=== PATIENT | female | born 1995 | race American Indian/Alaskan Native ===

== ENCOUNTER 2020-07-22 07:46 | Emergency (ER) | payer MEDICAID ==
[2020-07-22] MEDS ORDERED: cefTRIAXone 500 MG in Lidocaine 1% 1 ML IM ONE (08:25)
[2020-07-22] MEDS ORDERED: Azithromycin 250 MG Tab PO ONE (08:28)
[2020-07-22] MEDS ORDERED: Phenazopyridine 200 MG Tab PO ONE (08:29)
[2020-07-22] MEDS ORDERED: cefTRIAXone 250 MG in Lidocaine 1% 1 ML IM ONE (08:31)
--- NOTE | 2020-07-22 09:36 | EDM.PDOC ---
ED [facility] GENERAL MEDICAL PROBLEM - General Chief Complaint: General Stated Complaint: LOWER ABD PAIN Time Seen by Provider: 07/22/20 07:48 - History of Present Illness INITIAL COMMENTS - FREE TEXT/NARRATIVE: HISTORY AND PHYSICAL: History of present illness: This 24-year-old female without significant past medical history presents emergency department with urinary frequency, burning, hesitancy and change in color of her urine to be pink. She states that she has been living with her boyfriend but recently has had relationship difficulties secondary to infidelity and is also concerned that she may been exposed to a sexually transmitted disease. There is no positive test from anyone but she is concerned overall about this. She denies any nausea or vomiting or fever. No back pain. Does have some suprapubic irritation but not persistent pain. She denies any other associated signs or symptoms. States that she has not had a period for the last 8 weeks which is unusual for her and is concerned she might be . No other modifying, aggravating or alleviating factors. Of note she has been 3 times previously and has 3 live births. No abortions or miscarriages. Review of systems: A 10-point review of systems, other than pertinent positives and negatives as stated per HPI, is otherwise negative. Past medical history: As per history of present illness and as reviewed below otherwise noncontribut ory. Surgical history: As per history of present illness and as reviewed below otherwise noncontributory. Social history: No reported history of drug or alcohol abuse. Family history: As per history of present illness and as reviewed below otherwise noncontributory. Physical exam: VITAL SIGNS: Reviewed. GENERAL: Appears uncomfortable and needs to run back and forth to the bathroom. HEAD: No signs of head trauma. EYES: Pupils are equal. Extraocular motions intact. EARS: Hearing grossly intact. MOUTH: Oropharynx is normal. NECK: No adenopathy, no JVD. CHEST: Chest with clear breath sounds bilaterally. No wheezes, rales, or rhonchi. CARDIAC: Regular rate and rhythm. Normal S1 and S2, without murmurs, gallops, or rubs. VASCULAR: Peripheral pulses normal and equal in all extremities. ABDOMEN: Soft, minimal suprapubic tenderness which makes her feel that she needs to urinate. No distention rebound or guarding. No masses palpated. No CVA tenderness. MUSCULOSKELETAL: Good range of motion of all major joints. Extremities without clubbing, cyanosis or edema. NEUROLOGIC EXAM: Alert and oriented x 3. No focal sensory or motor deficits. Speech normal. Follows commands. PSYCHIATRIC: Mood normal. SKIN: No rash or lesions. Initial Differential Diagnosis & Plan: Differential diagnosis includes urinary tract infection, urethritis, candidiasis, gonorrhea, chlamydia, pyelonephritis. I will give empiric treatment for gonorrhea chlamydia with ceftriaxone, azithromycin, and send a self obtained wet mount sample. Urine GC chlamydia will be sent. Pyridium for symptoms. Definitive disposition and diagnosis as appropriate pending reevaluation and review of above. lower abdomen Pain Score (Numeric/FACES): 10 - Related Data Allergies Allergy/AdvReac Type Severity Reaction Status Date / Time No Known Allergies Allergy Verified 07/22/20 08:19 Home Meds: Home Meds Fluconazole [Diflucan] 150 mg PO ONETIME 1 Days #1 tab 07/22/20 [Rx] Lactobacillus 3/Fos/Pantethine [Probiotic & Acidophilus] 1 each PO BID 30 Days #60 capsule 07/22/20 [Rx] Phenazopyridine [Pyridium] 200 mg PO TID 3 Days #9 tab 07/22/20 [Rx] cephALEXin [Keflex] 1,000 mg PO TID 7 Days #42 capsule 07/22/20 [Rx] Past Medical History - Past Health History Medical/Surgical History: Denies Medical/Surgical History [employer] History: Reports: Social & Family History - Family History Family Medical History: Noncontributory - Recreational Drug Use Recreational Drug Use Frequency: Socially ED ROS GENERAL - Review of Systems Review Of Systems: See Below (noted) ED EXAM, GENERAL - Physical Exam Exam: See Below (noted) ED GENERAL MEDICAL PROCEDURES - Additional/Other Procedure(s) Other (Free Text) Procedure(s): PROCEDURE NOTE: Limited OB / Pelvic Ultrasound (transabdominal) Indication: Confirm evaluate for IUP All images obtained and evaluated by me. Images archived and saved. Findings: 1. Uterus Identified 2. No significant Free Fluid Noted 3. Normal-appearing uterus. No IUP identified Interpretation: No ultrasound evidence of an IUP. Signed by El Angeles M.D. Course - Vital Signs Last Recorded V/S: Last Vital Signs Temp 96.6 F L 07/22/20 08:16 Pulse 61 07/22/20 09:12 Resp 16 07/22/20 09:12 BP 123/73 07/22/20 09:12 Pulse Ox 99 07/22/20 09:12 - Orders/Labs/Meds Orders: Active Orders 24 hr Category Date Time Status CHLAMYDIA AND GONORRHEA BY TMA Stat Lab 07/22/20 08:45 Received CULTURE URINE [RM] Stat Lab 07/22/20 08:20 Received TRICH/KIKO/CAND BY DNA PROBE [MOLEC] Stat Lab 07/22/20 08:48 Received Labs: Laboratory Tests 07/22/20 07/22/20 Range/Units 08: 08:20 Urine Color YELLOW Urine Appearance SLT CLOUDY Urine pH 7.0 (5.0-8.0) Ur Specific [place] <= 1.005 (1.001-1.035) Urine Protein TRACE H (NEGATIVE) mg/dL Urine Glucose (UA) NEGATIVE (NEGATIVE) mg/dL Urine Ketones NEGATIVE (NEGATIVE) mg/dL Urine Occult Blood LARGE H (NEGATIVE) Urine Nitrite NEGATIVE (NEGATIVE) Urine Bilirubin NEGATIVE (NEGATIVE) Urine Urobilinogen 0.2 (<2.0) EU/dL Ur Leukocyte Esterase LARGE H (NEGATIVE) Urine RBC 3-6 (0-2/HPF) Urine WBC 40-50 (0-5/HPF) Ur Epithelial Cells FEW (NONE-FEW) Urine Bacteria 1+ H (NEGATIVE) Urine HCG, Qual NEGATIVE (NEGATIVE) Meds: Medications Discontinued Medications Generic Name Dose Route Start Last Admin Trade Name Freq PRN Reason Stop Dose Admin Azithromycin 1,000 mg 07/22/20 08:28 07/22/20 08:45 Zithromax PO 07/22/20 08:29 1,000 mg ONETIME ONE Administration Ceftriaxone Sodium 250 mg/ 1 mls @ 1 mls/sec 07/22/20 08:31 07/22/20 08:45 Lidocaine HCl IM 07/22/20 08:32 1 mls/sec ONETIME ONE Administration Phenazopyridine HCl 200 mg 07/22/20 08:29 07/22/20 08:44 Pyridium PO 07/22/20 08:30 200 mg ONETIME ONE Administration - Re-Assessments/Exams Free Text/Narrative Re-Assessment/Exam: 07/22/20 09:38 Patient does not have evidence of a . She does have evidence of cystitis given her symptoms and UA. We will treat with oral antibiotics. No symptoms of pyelonephritis. My diagnostic impression: 1. Cystitis 2. Hematuria 3. Empiric treatment for sexually transmitted infection Departure - Departure Time of Disposition: 09:39 Disposition: Home, Self-Care 01 Clinical Impression: Acute cyclitis, Hematuria, Risk for sexually transmitted disease - Discharge Information *PRESCRIPTION DRUG MONITORING PROGRAM REVIEWED*: Not Applicable *COPY OF PRESCRIPTION DRUG MONITORING REPORT IN PATIENT SETH: Not Applicable Instructions: Hematuria, Adult, Hemorrhagic Cystitis Referrals: PCP,None [Primary Care Provider] - Forms: ED Department Discharge Additional Instructions: The following information is given to patients seen in the emergency department who are being discharged to home. This information is to outline your options for follow-up care. We provide all patients seen in our emergency department with a follow-up referral. The need for follow-up, as well as the timing and circumstances, are variable depending upon the specifics of your emergency department visit. If you don't have a primary care physician on staff, we will provide you with a referral. We always advise you to contact your personal physician following an emergency department visit to inform them of the circumstance of the visit and for follow-up with them and/or the need for any referrals to a consulting specialist. The emergency department will also refer you to a specialist when appropriate. This referral assures that you have the opportunity for follow-up care with a specialist. All of these measure are taken in an effort to provide you with optimal care, which includes your follow-up. Thank you for coming to the [facility] urgency department for your care today. It was Dr. Angeles's pleasure to take care of you. [facility] - Primary [facility] [address] [place] [id number] [address] [id number] You have signs symptoms of a bladder infection. You have been treated empirically for gonorrhea chlamydia given your concern and risk for this underlying disease. This testing will not be back for several days. Your test today is negative. Please take the antibiotics as prescribed. Return emergency department for fever, vomiting, worsening symptoms, or any other concerns. Under all circumstances we always encourage you to contact your private physician who remains a resource for coordinating your care. When calling for follow-up care, please make the office aware that this follow-up is from your recent emergency room visit. If for any reason you are refused follow-up, please contact the [facility] Emergency Department at and asked to speak to the emergency department charge nurse. Sepsis Event Note (ED) - Evaluation Sepsis Screening Result: No Definite Risk - Focused Exam Vital Signs: Vital Signs Temp Pulse Resp BP Pulse Ox 07/22/20 09:12 61 16 123/73 99 07/22/20 08:16 96.6 F L 78 18 120/88 99 - My Orders Last 24 Hours: My Active Orders 07/22/20 08:20 CULTURE URINE [RM] Stat 07/22/20 08:45 CHLAMYDIA AND GONORRHEA BY TMA Stat 07/22/20 08:48 TRICH/KIKO/CAND BY DNA PROBE [MOLEC] Stat - Assessment/Plan Last 24 Hours: My Active Orders 07/22/20 08:20 CULTURE URINE [RM] Stat 07/22/20 08:45 CHLAMYDIA AND GONORRHEA BY TMA Stat 07/22/20 08:48 TRICH/KIKO/CAND BY DNA PROBE [MOLEC] Stat
[2020-07-24 14:07] LABS: C.TRACHOMATIS BY TMA Negative (Negative); N.GONORRHOEAE BY TMA Negative (Negative)
== END 2020-07-22 09:52 | disposition home or self-care (01) ==
LOC: MW.ED 07:46
DX: N30.01 Acute cystitis with hematuria (principal); Z20.2 Contact with and (suspected) exposure to infections with a predominantly sexual mode of transmission
CPT/HCPCS: 81001; 81025; 87086; 87480; 87491; 87510; 87591; 87660; 96372; 99284; A9270; J0696; J2001; 87088; 87186; 99283